=== PATIENT | female | born 1950 | race Caucasian/White ===

== ENCOUNTER 2019-01-26 06:10 | Day surgery (SDC) | payer MEDICARE, OTHER ==
[~2019-01-26] VITALS: Ht 152.4 cm; Wt 65.8 kg
[2019-01-26] MEDS ORDERED: NO ACTIVE MEDS (07:09)
[2019-01-26] MEDS ORDERED: FENTAnyl 50 MCG/ML VIAL ONE (07:22)
[2019-01-26] MEDS ORDERED: PROPOFOL 20 ML ONE (07:22)
[2019-01-26 07:25] VITALS: BP 140/63; PULSE 64; RESP 13
--- NOTE | 2019-01-26 07:37 | PREAC ---
Date/Time of Note Date/Time of Note DATE: 01/26/19 TIME: 07:36 Anesthesia Eval and Record Evaluation Time Pre-Procedure Interview DATE: 01/26/19 TIME: 07:36 Age 68 Sex female NPO: 8 hrs Preoperative diagnosis abd pain, screening Planned procedure EGD colonoscopy Past Medical History Past Medical History: None Surgery & Anesthesia Issues No known issue Meds Anticoagulation: No Beta Lauren within 24 hr: No Reason Beta Lauren not given: Pt. not on B-Lauren Reported Medications [No Active Meds] No Conflict Check 01/26/19 Meds reviewed: Yes Allergies Coded Allergies: No Known Allergy (Unverified , 01/26/19) Allergies Reviewed: Yes Labs/Studies Labs Reviewed: Reviewed by anesthesiologist test: N/A Studies: ECG (n/a), CXR (n/a) Pre-procedure Exam Last vitals Vital Signs Date Temp Pulse Resp B/P (MAP) Pulse Ox O2 O2 Flow FiO2 Time Delivery Rate 01/26/19 97.1 64 13 140/63 94 Room Air 07:25 (88) Airway: Adequate mouth opening Mallampati: Mallampati I Teeth: Normal Lung: Normal Heart: Normal ASA Physical Status ASA physical status: 1 Emergency: None Planned Anesthetic General/MAC: MAC Planned Pain Management Parenteral pain med Pre-operative Attestations Prior to commencing anesthesia and surgery, the patient was re-evaluated, there was verification of: *The patient's identity *The results of appropriate recent lab work and preoperative vital signs *The above evaluation not changing prior to induction *Anesthetic plan, risk benefits, alternative and complications discussed with patient/family; questions answered; patient/family understands, accepts and wishes to proceed. IVAN LIMA MD Jan 26, 2019 07:37
[2019-01-26] MEDS ORDERED: ONDANSETRON 4 MG INJ IV PRN (08:00)
[2019-01-26 08:39] VITALS: BP 123/58; PULSE 52; RESP 13
--- NOTE | 2019-01-26 11:33 | CONS ---
DATE OF ADMISSION: 01/26/2019 DATE OF CONSULTATION: PATIENT NAME: BRENNAN DILL TYPE OF CONSULTATION: Preoperative gastroenterology. Dear Dr. Guerrero: I thank you very much for this kind referral. HISTORY OF PRESENT ILLNESS: Ms. Linnea Dill is a 68-year-old female patient who has been ref erred to me for further evaluation of upper abdominal pain, not responding to symptomatic medical the rapy. The patient also complains of chronic heartburn. The patient had abdominal ultrasound and it was normal. No past history of peptic ulcer disease. Not on nonsteroidal anti-inflammatory agents. No history of gallstones or liver disease. The patient has noticed a change in the bowel habit. No past history of colon neoplasm. The patient never had screening colonoscopy. Not a hypertensive or diabetic. No heart disease, lung problem or kidney disease. The patient has history of hyperlipide christine. SOCIAL HISTORY: Nonsmoker. No alcohol abuse. FAMILY HISTORY: No family history of gastrointestinal tract neoplasm. ALLERGIES: NO DRUG ALLERGIES. MEDICATIONS: None. PHYSICAL EXAMINATION: VITAL SIGNS: She is 5 feet tall and weighs 145 pounds. HEART: Normal heart sounds. LUNGS: Clear. ABDOMEN: Soft. No masses. Normal bowel sounds. NEUROLOGIC: Normal. IMPRESSION: 1. Upper abdominal pain and chronic heartburn, not responding to therapy. 2. The patient had abdominal ultrasound and it was normal. 3. Change in the bowel habit. 4. The patient never had screening colonoscopy. 5. History of hyperlipidemia. 6. The patient is 5 feet tall and she weighs 145 pounds, BMI 28, blood pressure 124/72. 7. The patient has elevated BMI. PLAN: 1. Endoscopic examination for further evaluation of abdominal pain and chronic heartburn. 2. Omeprazole 40 mg p.o. q.a.m. 3. Screening colonoscopy. 4. The patient wants cream for her hemorrhoids. She was prescribed Anusol-HC 2.5% cream. 5. She will be followed by the primary MD for the management of elevated BMI and for watching the bl ood pressure. The procedures and possible complications are well explained to the patient. She understands and con sents to the procedures. I thank you once again. With warmest personal regards, Dictated By: RYANN RIVERO/KORIN Conf#: [id number] [facility]#: [id number]
--- NOTE | 2019-01-27 09:39 | PAC ---
Date/Time of Note Date/Time of Note DATE: 01/27/19 TIME: 09:38 Post-Anesthesia Notes Post-Anesthesia Note Last documented vital signs Vital Signs Date Temp Pulse Resp B/P (MAP) Pulse Ox O2 O2 Flow FiO2 Time Delivery Rate 01/26/19 97.6 52 13 123/58 97 Room Air 09:39 (79) 01/26/19 97.1 07:25 Activity: WNL Respiratory function: WNL Cardiovascular function: WNL Mental status: Baseline Pain reasonably controlled: Yes Hydration appropriate: Yes Nausea/Vomiting absent: No IVAN LIMA MD Jan 27, 2019 09:39
== END 2019-01-26 12:02 | disposition home or self-care (01) ==
LOC: GIL 06:10
PROVIDERS: ATTEND Internal Medicine Gastroenterology
DX: Z12.11 Encounter for screening for malignant neoplasm of colon (principal); K29.50 Unspecified chronic gastritis without bleeding; K64.8 Other hemorrhoids; K57.30 Diverticulosis of large intestine without perforation or abscess without bleeding; K21.9 Gastro-esophageal reflux disease without esophagitis
CPT/HCPCS: 43239; 88305; 88312; G0121; J3010